=== PATIENT | male | born 1975 | race Caucasian/White ===

== ENCOUNTER 2019-05-12 17:42 | Emergency (ER) | payer SELFPAY ==
--- OUTSIDE RECORDS SUMMARY | 2019-05-12 17:45 | XMS REPORT ---
:1975 [facility] Address [address] [place] [address] [address] [place] [address] Care Team Providers Name Role Phone Unavailable Unavailable Unavailable Problems This patient has no known problems. Allergies, Adverse Reactions, Alerts This patient has no known allergies or adverse reactions. Medications This patient has no known medications.
--- NOTE | 2019-05-12 18:50 | EDPHYS ---
Physician Documentation [facility] Name: Anjel Negrete Age: 44 yrs Sex: Male : 1975 Arrival Date: 05/12/2019 Time: 17:45 Bed 18 Private MD: HANNAH Physician Richie Cisneros HPI: 05/11 18:42 This 44 yrs old Male presents to ER via Ambulatory with complaints of demond Laceration To Leg. 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 The demond laceration(s) is(are) located on the right quadriceps. Onset: The symptoms/episode began/occurred just prior to arrival. Associated signs and symptoms: The patient has no apparent associated signs or symptoms. The patient has not experienced similar symptoms in the past. Historical: - Allergies: 17:53 No Known Allergies; ss - Home Meds: 17:53 None [Active]; ss - PMHx: 17:53 None; ss - PSHx: 17:53 None; ss - Immunization history:: Last tetanus immunization: unknown. - Social history:: Smoking status: Reported history of juuling and/or vaping. - Family history:: not pertinent. ROS: 18:42 Constitutional: Negative for fever, chills, and weight loss, Eyes: Negative for injury, demond pain, redness, and discharge, ENT: Negative for injury, pain, and discharge, Neck: Negative for injury, pain, and swelling, Cardiovascular: Negative for chest pain, palpitations, and edema, Respiratory: Negative for shortness of breath, cough, wheezing, and pleuritic chest pain, Abdomen/GI: Negative for abdominal pain, nausea, vomiting, diarrhea, and constipation, Back: Negative for injury and pain, : Negative for injury, bleeding, discharge, and swelling, Skin: Negative for injury, rash, and discoloration, Neuro: Negative for headache, weakness, numbness, tingling, and seizure, Psych: Negative for depression, anxiety, suicide ideation, homicidal ideation, and hallucinations, Allergy/Immunology: Negative for hives, rash, and allergies, Endocrine: Negative for neck swelling, polydipsia, polyuria, polyphagia, and marked weight changes, Hematologic/Lymphatic: Negative for swollen nodes, abnormal bleeding, and unusual bruising. 18:42 MS/extremity: Positive for decreased range of motion, pain, tenderness, of the medial aspect of right thigh. Exam: 18:42 Constitutional: This is a well developed, well nourished patient who is awake, alert, demond and in no acute distress. Head/Face: Normocephalic, atraumatic. Eyes: Pupils equal round and reactive to light, extra-ocular motions intact. Lids and lashes normal. Conjunctiva and sclera are non-icteric and not injected. Cornea within normal limits. Periorbital areas with no swelling, redness, or edema. ENT: Nares patent. No nasal discharge, no septal abnormalities noted. Tympanic membranes are normal and external auditory canals are clear. Oropharynx with no redness, swelling, or masses, exudates, or evidence of obstruction, uvula midline. Mucous membranes moist. Neck: Trachea midline, no thyromegaly or masses palpated, and no cervical lymphadenopathy. Supple, full range of motion without nuchal rigidity, or vertebral point tenderness. No Meningismus. Chest/axilla: Normal chest wall appearance and motion. Nontender with no deformity. No lesions are appreciated. Cardiovascular: Regular rate and rhythm with a normal S1 and S2. No gallops, murmurs, or rubs. Normal PMI, no JVD. No pulse deficits. Respiratory: Lungs have equal breath sounds bilaterally, clear to auscultation and percussion. No rales, rhonchi or wheezes noted. No increased work of breathing, no retractions or nasal flaring. Abdomen/GI: Soft, non-tender, with normal bowel sounds. No distension or tympany. No guarding or rebound. No evidence of tenderness throughout. Back: No spinal tenderness. No costovertebral tenderness. Full range of motion. Male : Normal genitalia with no discharge or lesions. MS/ Extremity: Pulses equal, no cyanosis. Neurovascular intact. Full, normal range of motion. Neuro: Awake and alert, GCS 15, oriented to person, place, time, and situation. Cranial nerves II-XII grossly intact. Motor strength 5/5 in all extremities. Sensory grossly intact. Cerebellar exam normal. Normal gait. Psych: Awake, alert, with orientation to person, place and time. Behavior, mood, and affect are within normal limits. 18:42 Skin: injury, laceration(s), the wound is approximately 4 cm(s), with a depth of .5 cm(s), of the medial aspect of right thigh. Vital Signs: 17:51 BP 122 / 90; Pulse 91; Resp 18; Temp 97.8(TE); Pulse Ox 98% on R/A; Weight 68.04 kg; ss Height 5 ft. 9 in. (175.26 cm); Pain 3/10; 18:46 BP 130 / 86; Pulse 88; Resp 16; Pulse Ox 99% on R/A; hb 19:09 BP 136 / 75; Pulse 84; Resp 16; Pulse Ox 99% on R/A; ao 17:51 Body Mass Index 22.15 (68.04 kg, 175.26 cm) ss Laceration: 18:47 Wound Repair of 4cm ( 1.6in ) subcutaneous laceration to medial aspect of right thigh. demond Irregularly shaped.. Distal neuro/vascular/tendon intact. Anesthesia: Local anesthetic administered with 10 mls of 1% lidocaine w/ Epi. Wound prep: Moderate cleansing with betadine. Skin closed with 5 1-0 Prolene using interrupted sutures and sterile technique. Dressed with Neosporin, non-adherent dressing. Patient tolerated well. MDM: 18:28 Patient medically screened. [facility] 18:46 Data reviewed: vital signs, nurses notes, radiologic studies. [facility] 05/11 18:42 Order name: Femur Right XRAY [facility] 05/11 18:42 Order name: Prolene, Sutures; Complete Time: 19:04 [facility] 05/11 18:42 Order name: Dressing - Wound; Complete Time: 19:03 [facility] 05/11 18:42 Order name: Gloves, Sterile; Complete Time: 19:04 [facility] 05/11 18:42 Order name: Setup Suture Tray; Complete Time: 19:04 [facility] 05/11 18:42 Order name: Wound Care; Complete Time: 18:49 [facility] Administered Medications: 19:04 Drug: Tetanus-Diphtheria Toxoid Adult 0.5 ml {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 Exp: hb 01/23/2021. Lot #: [id number]. } Route: IM; Site: right deltoid; 19:53 Follow up: Response: No adverse reaction ao 19:04 Drug: Ancef 1 grams Route: IM; Site: right ventrogluteal; hb 19:54 Follow up: Response: No adverse reaction ao 19:54 Drug: Lidocaine-Epinephrine -1%: (1:100,000) 10 ml {Note: By Dr Cisneros.} Volume: 20 ao ml; Route: Infiltration; Disposition: 05/12/19 18:49 Discharged to Home. Impression: Laceration without foreign body, right thigh. - Condition is Stable. - Discharge Instructions: Laceration Care, Adult, Laceration Care, Adult, [id number]. - Prescriptions for Keflex 500 mg Oral Capsule - take 1 capsule by ORAL route every 6 hours for 7 days; 28 capsule. Tylenol- Codeine #3 300-30 mg Oral Tablet - take 2 tablets by ORAL route every 6 hours As needed; 20 tablet. - Medication Reconciliation Form, Thank You Letter, Antibiotic Education, Prescription Opioid Use form. - Follow up: Private Physician; When: 2 - 3 days; Reason: Recheck today's complaints, Re-evaluation by your physician. - Problem is new. - Symptoms have improved. Signatures: Dispatcher [employer] EDNV Richie Cisneros MD MD cha Smirch, Shelby, RN RN Oseas Lu RN RN ao Baxter, Heather, RN RN Corrections: (The following items were deleted from the chart) 17:54 17:51 Immunization history: Adult Immunizations up to date, [facility] 20:20 18:49 05/12/2019 18:49 Discharged to Home. Impression: Laceration without foreign body, ao right thigh. Condition is Stable. Forms are Medication Reconciliation Form, Thank You Letter, Antibiotic Education, Prescription Opioid Use. Follow up: Private Physician; When: 2 - 3 days; Reason: Recheck today's complaints, Re-evaluation by your physician. Problem is new. Symptoms have improved. demond
--- NOTE | 2019-05-12 18:50 | ER ---
Nurse's Notes [facility] Name: Anjel Negrete Age: 44 yrs Sex: Male : 1975 Arrival Date: 05/12/2019 Time: 17:45 Bed 18 Private MD: Diagnosis: Laceration without foreign body, right thigh Presentation: 05/11 17:51 Chief complaint: Patient states: laceration to R thigh VIA circular saw approximately ss 45 minutes ago. Coronavirus screen: The patient has NOT traveled to a country currently being monitored by the CDC within the last 14 days. Proceed with normal triage procedures. Ebola Screen: Patient denies exposure to infectious person. Patient denies travel to an Ebola-affected area in the 21 days before illness onset. Complicating Factors: There are no complicating factors for this patient. Initial Sepsis Screen: Does the patient meet any 2 criteria? No. Patient's initial sepsis screen is negative. Does the patient have a suspected source of infection? No. Patient's initial sepsis screen is negative. Risk Assessment: Do you want to hurt yourself or someone else? Patient reports no desire to harm self or others. Note bleeding controlled with bandage patient placed prior to arrival. Electrical tape noted. 17:51 Method Of Arrival: Ambulatory ss 17:51 Acuity: PREMA 3 ss 19:13 Onset of symptoms is unknown. ao Historical: - Allergies: 17:53 No Known Allergies; ss - Home Meds: 17:53 None [Active]; ss - PMHx: 17:53 None; ss - PSHx: 17:53 None; ss - Immunization history:: Last tetanus immunization: unknown. - Social history:: Smoking status: Reported history of juuling and/or vaping. - Family history:: not pertinent. Screenin:49 Abuse screen: Denies threats or abuse. Denies injuries from another. Nutritional hb screening: No deficits noted. Tuberculosis screening: No symptoms or risk factors identified. Fall Risk None identified. Assessment: 18:28 General: Appears in no apparent distress. Behavior is calm, cooperative. Pain: Pain hb currently is 9 out of 10 on a pain scale. Neuro: Level of Consciousness is awake, alert, obeys commands, Oriented to person, place, time, situation. Cardiovascular: Capillary refill < 3 seconds Patient's skin is warm and dry. Respiratory: Airway is patent Respiratory effort is even, unlabored, Respiratory pattern is regular, symmetrical. GI: No signs and/or symptoms were reported involving the gastrointestinal system. : No signs and/or symptoms were reported regarding the genitourinary system. EENT: No signs and/or symptoms were reported regarding the EENT system. Derm: Skin is pink, warm \T\ dry. Musculoskeletal:. Injury Description: Laceration sustained to medial aspect of right thigh is jagged, 2.6 to 7.5 cm long, not bleeding, was sustained 1-2 hours ago. 19:09 Reassessment: Patient appears in no apparent distress at this time. Patient and/or ao family updated on plan of care and expected duration. Pain level reassessed. Received report from BRODERICK Llanos. Vital Signs: 17:51 BP 122 / 90; Pulse 91; Resp 18; Temp 97.8(TE); Pulse Ox 98% on R/A; Weight 68.04 kg; ss Height 5 ft. 9 in. (175.26 cm); Pain 3/10; 18:46 BP 130 / 86; Pulse 88; Resp 16; Pulse Ox 99% on R/A; hb 19:09 BP 136 / 75; Pulse 84; Resp 16; Pulse Ox 99% on R/A; ao 17:51 Body Mass Index 22.15 (68.04 kg, 175.26 cm) ss ED Course: 17:45 Patient arrived in ED. rg4 17:53 Triage completed. ss 17:53 Arm band placed on right wrist. ss 18:28 Richie Cisneros MD is Attending Physician. [facility] 18:46 Romi Soliman RN is Primary Nurse. hb 18:49 Patient has correct armband on for positive identification. Bed in low position. Call hb light in reach. 19:32 Femur Right XRAY In Process Unspecified. EDMS 20:19 Assist provider with laceration repair on right quadriceps that was between 7.6 to 12.5 ao cm using sutures. Set up tray. Performed by Richie Cisneros MD Dressed with 4X4s, Kerlix, Neosporin, Patient tolerated well. 20:20 Patient did not have IV access during this emergency room visit. 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 Exp: hb 01/23/2021. Lot #: [id number]. } Route: IM; Site: right deltoid; 19:53 Follow up: Response: No adverse reaction ao 19:04 Drug: Ancef 1 grams Route: IM; Site: right ventrogluteal; hb 19:54 Follow up: Response: No adverse reaction ao 19:54 Drug: Lidocaine-Epinephrine -1%: (1:100,000) 10 ml {Note: By Dr Cisneros.} Volume: 20 ao ml; Route: Infiltration; Outcome: 18:49 Discharge ordered by MD. lagos 20:20 Discharged to home ambulatory. ao 20:20 Condition: stable 20:20 Discharge instructions given to patient, Instructed on discharge instructions, follow up and referral plans. Demonstrated understanding of instructions, follow-up care, medications, Prescriptions given X 2. 20:20 Patient left the ED. ao Signatures: Dispatcher [employer] EDRichie Hallman MD MD cha Smirch, Shelby, RN RN ss Ortiz, Alex RN Romi Benavides RN RN hb Garcia, Rubi rg4 Corrections: (The following items were deleted from the chart) 17:54 17:51 Immunization history: Adult Immunizations [facility] to date, [facility]
[2019-05-12] MEDS ORDERED: WATER FOR INJ,STERILE 10 ML ONE (18:56)
[2019-05-12] MEDS ORDERED: TETANUS & DIPHTHERIA TOX,ADULT 0.5 ML VIAL ONE (18:56)
[2019-05-12] MEDS ORDERED: LIDOCAINE 1% W/EPI 1:100,000 MDV 20 ML VIAL ONE (18:56)
[2019-05-12] MEDS ORDERED: CEFAZOLIN SODIUM 1 GM/VIAL ONE (18:56)
--- NOTE | 2019-05-12 20:13 | RAD REPORT ---
EXAM DESCRIPTION: RAD - Femur Right - 05/12/2019 7:31 pm CLINICAL HISTORY: Right leg pain FINDINGS: Soft tissue laceration involves upper knee. A radiopaque foreign body is not noted No fracture
[2019-05-12 20:28] VITALS: TEMP 97.8
[2019-05-12 20:29] VITALS: O2SAT 99
[2019-05-12 20:31] VITALS: BP 136/75
== END 2019-05-12 20:20 | disposition home or self-care (01) ==
LOC: ER 17:42
PROC: 0JQL0ZZ Repair Right Upper Leg Subcutaneous Tissue and Fascia, Open Approach (ICD-10-PCS; principal; 2019-05-12)
DX: S71.111A Laceration without foreign body, right thigh, initial encounter (principal); W29.8XXA Contact with other powered hand tools and household machinery, initial encounter; Y93.89 Activity, other specified; Y92.9 Unspecified place or not applicable; Z23 Encounter for immunization
CPT/HCPCS: 90471; 90714; 96372; 99284; J0690